=== PATIENT | female | born 1935 | race Caucasian/White ===

== ENCOUNTER 2018-01-26 20:01 | Inpatient (IN) | payer OTHER ==
[~2018-01-26] VITALS: Ht 152.4 cm; Wt 73.0 kg
[~2018-01-26 20:01] MED LIST: COZ50 PO
[2018-01-26 20:10] VITALS: Ht 152.4 cm; Wt 73.0 kg
[2018-01-26 20:56] LABS: CARBON DIOXIDE 26.4 mmol/L (21-32); CHLORIDE SERUM 106 mmol/L (98-107); CREATININE SERUM 0.9 mg/dL (0.6-1.0); GLUCOSE SERUM 109 mg/dL (74-106); POTASSIUM SERUM 3.8 mmol/L (3.5-5.1); SODIUM SERUM 139 mmol/L (136-145)
[2018-01-26 21:00] LABS: ALKALINE PHOSPHATASE 85 U/L (46-116); ALT/SGPT 19 U/L (14-59); AST/SGOT 20 U/L (15-37); BILIRUBIN TOTAL 0.22 mg/dL (0.20-1.00); TOTAL PROTEIN, SERUM 6.8 g/dL (6.4-8.2)
[2018-01-26 21:01] LABS: ALBUMIN 3.3 g/dL (3.4-5.0)
[2018-01-26 21:03] LABS: BASOPHIL % 0.4 % (0-2); PLATELET COUNT 192 x10^3mcL (130-400); RED CELL DISTRIBUTION WIDTH 13.6 % (11.5-14.5)
[2018-01-26 21:53] LABS: MAGNESIUM 2.3 mg/dL (1.8-2.4); PHOSPHOROUS 3.1 mg/dL (2.5-4.9)
[2018-01-26 21:54] LABS: CHOLESTEROL/HDL RATIO 5.1
[2018-01-26 21:57] LABS: T3 TOTAL 0.92 ng/mL
[2018-01-26 21:59] VITALS: BP 161/53
[2018-01-26 22:02] LABS: FREE T4 1.02 ng/dL (0.76-1.46); FREE THYROXINE INDEX 2.4 ug/dL (1.4-4.5); T4(THYROXINE) 6.9 ug/dL (4.7-13.3)
[2018-01-27] VITALS (7 sets, daily range): BP systolic 126–172; BP diastolic 48–60
[2018-01-27 02:13] LABS: microscopic required? YES; urine erythrocyte NEGATIVE (NEGATIVE)
[2018-01-28 05:52] VITALS: BP 157/58
[2018-01-28 06:56] LABS: BASOPHIL % 0.4 % (0-2); PLATELET COUNT 189 x10^3mcL (130-400); RED CELL DISTRIBUTION WIDTH 13.4 % (11.5-14.5)
[2018-01-28 07:10] LABS: CALCIUM 9.1 mg/dL (8.5-10.1); CARBON DIOXIDE 28.2 mmol/L (21-32); CHLORIDE SERUM 108 mmol/L (98-107); CREATININE SERUM 0.8 mg/dL (0.6-1.0); GLUCOSE SERUM 89 mg/dL (74-106); MAGNESIUM 2.4 mg/dL (1.8-2.4); PHOSPHOROUS 3.2 mg/dL (2.5-4.9); POTASSIUM SERUM 4.4 mmol/L (3.5-5.1); SODIUM SERUM 143 mmol/L (136-145)
[2018-01-28 08:06] VITALS: BP 166/56
[2018-01-28 09:10] VITALS: BP 135/68
[2018-01-28] MEDS ORDERED: LEVAQUIN250 M1 PO (10:23)
[2018-01-28] MEDS ORDERED: LAC PO (10:24)
[2018-01-28 11:50] VITALS: BP 135/68
[2018-01-28] MEDS ORDERED: MAG PO (12:00)
[2018-01-28] MEDS ORDERED: POTASSIUM CHLO10 ME2 PO (12:00)
== END 2018-01-28 12:40 | disposition home or self-care (01) | DRG 205 ==
LOC: ED 20:01 → DU 21:15
PROVIDERS: Emergency Medicine; Family Medicine
DX: M94.0 Chondrocostal junction syndrome [Tietze] (principal); N17.0 Acute kidney failure with tubular necrosis; E44.0 Moderate protein-calorie malnutrition; I10 Essential (primary) hypertension; E78.1 Pure hyperglyceridemia; E66.9 Obesity, unspecified; Z68.31 Body mass index [BMI] 31.0-31.9, adult
CPT/HCPCS: 83880; 84439; J1956; J7030; Q0092

== ENCOUNTER 2018-12-02 10:00 | Emergency (ER) | payer OTHER ==
[~2018-12-02] VITALS: Ht 154.9 cm; Wt 69.9 kg
[~2018-12-02 10:00] MED LIST changes: +ASPIRIN ADULT L81 M5 PO; +DEXTROSE IV; +ECO81 PO; +HEP25PM IV; +LAC PO; +LEVAQUIN250 M1 PO; +LIPITOR80 MG PO; +LOSARTAN POTASS25 M1; +MAG PO; +METOPROLOL TART25 M1 PO; +NIT0.4 SL; +POTASSIUM CHLO10 ME2 PO; +TYL325 PO; +[UNRECOGNIZED DRUG - OTHER] IV
[2018-12-02 10:19] VITALS: Ht 154.9 cm; Wt 69.9 kg
[2018-12-02 12:57] VITALS: BP 134/74
== END 2018-12-02 12:57 | disposition home or self-care (01) ==
LOC: ED 10:00
DX: R05 Cough (principal); I10 Essential (primary) hypertension
CPT/HCPCS: Q0092

== ENCOUNTER 2019-04-16 00:03 | Inpatient (IN) | payer OTHER ==
[~2019-04-16] VITALS: Ht 160 cm; Wt 69.9 kg
--- NOTE | 2019-04-16 00:10 | NUR ---
PT. BIB AMBULANCE FOR "FLU LIKE SYMPTOMS" PER FAMILY SINCE YESTERDAY. PER MEDICS WHEN THEY ARRIVED PT. WAS BREATHING NORMAL AND WAS NOT IN ANY DISTRESS, ONCE PLACED ON GURNY, PT. BEGAN TO HAVE TACYPNEA, FEELING SOB, AND C/O OF FEELING ANXIOUS. MEDICS REPORTS PT. WAS VERY ANXIOUS DURING TRANSPORT. PT. AAOX4, SPEAKING IN 2-3 WORD SENTENCES BETWEEN BREATHS AND IN MODERATE DISTRESS. PLACED ON FULL STRIPER SPRAY GUN, OXYGEN GIVEN VIA NC AT 2L FOR OXYGEN SATURATION OF 93% ON RA. PT. REPORTS SHE'S HAD A COUGH AND CONGESTION SINCE YESTERDAY. AND PAST MEDICAL HX OF HEART SURGEY LAST YEAR. DR. COLEMAN MADE AWARE.
[2019-04-16 00:19] VITALS: Ht 160 cm; Wt 69.9 kg
--- NOTE | 2019-04-16 00:36 | NUR ---
DR. COLEMAN AT BEDSIDE FOR MSE.
--- NOTE | 2019-04-16 00:59 | NUR ---
RT AT BEDSIDE FOR BIPAP SET UP
--- NOTE | 2019-04-16 01:00 | NUR ---
PT. ON BIPAP AT 12/5 FIO2 AT 60% WITH RATE OF 14. TOLERATING WELL. WILL CONTINUE TO MONITOR.
[2019-04-16 01:56] LABS: CALCIUM 9.8 mg/dL (8.5-10.1); CARBON DIOXIDE 23.5 mmol/L (21-32); CHLORIDE SERUM 108 mmol/L (98-107); CREATININE SERUM 0.9 mg/dL (0.6-1.0); GLUCOSE SERUM 119 mg/dL (74-106); POTASSIUM SERUM 3.8 mmol/L (3.5-5.1); SODIUM SERUM 144 mmol/L (136-145)
[2019-04-16 01:58] LABS: BASOPHIL % 0.4 % (0-2); PLATELET COUNT 187 x10^3mcL (130-400); RED CELL DISTRIBUTION WIDTH 13.8 % (11.5-14.5)
--- NOTE | 2019-04-16 02:00 | NUR ---
PT. CONTINUES TO BE ON BIPAP, TOLERATING WELL. SLEEPING; EASILY ARROUSABLE. REPORTS SHE IS FEELING BETTER. PT. SITTING UP IN GURNEY, NOT IN ANY APPARENT DISTRESS AT THIS TIME. DAUGHTER AT BEDSIDE. WILL CONTINUE TO MONITOR.
[2019-04-16 02:01] LABS: ALBUMIN 3.6 g/dL (3.4-5.0); ALKALINE PHOSPHATASE 86 U/L (46-116); ALT/SGPT 26 U/L (14-59); AST/SGOT 21 U/L (15-37); BILIRUBIN TOTAL 1.24 mg/dL (0.20-1.00); TOTAL PROTEIN, SERUM 7.2 g/dL (6.4-8.2)
[2019-04-16 02:13] LABS: CK-MB 1.8 ng/mL (0-3.6)
--- NOTE | 2019-04-16 02:15 | NUR ---
RT. AT BEDSIDE TO REMOVE PT. OFF BIPAP PER DR. COLEMAN.
--- NOTE | 2019-04-16 02:20 | NUR ---
PT. PLACED ON BEDPAN FOR URINE SAMPLE. STATES SHE IS UNABLE TO VOID AT THIS TIME. RT AT BEDSIDE FOR BREATHING TREATMENT, WILL ATTEMPT TO COLLECT SAMPLE AFTTER BREATHING TREATMENT.
--- NOTE | 2019-04-16 02:31 | NUR ---
BREATHING TREATMENT IN PROGRESS. WILL CONTINUE TO MONITOR.
--- NOTE | 2019-04-16 02:50 | NUR ---
PT. PLACED ON BEDPAN. STATES SHE IS UNABLE TO VOID AT THIS TIME. INFORMED PT. AND DAUGHTER THAT I WILL INSERT STRAIGHT CATH TO COLLECT SAMPLE IF SHE IS UNALBE TO VOID. PT. AND DAUGHTER REFUSING STRAIGHT CATH FOR URINE SAMPLE. DR. COLEMAN MADE AWARE.
[2019-04-16 03:48] VITALS: BP 137/59
--- NOTE | 2019-04-16 03:50 | NUR ---
PT. SLEEPING, EASILY ARROUSABLE. BREATHING EQUAL AND UNLABORED. NOT IN ANY APPARENT DISTRESS AT THIS TIME. AWAITING TELE ROOM FOR TRANSFER. WILL CONTINUE TO MONITOR.
--- NOTE | 2019-04-16 04:02 | NUR ---
REPORT GIVEN TO CORY BUTLER FOR FURTHER CARE OF PATIENT. ALL QUESTIONS AND CONCERNS ADDRESSED.
--- NOTE | 2019-04-16 04:17 | NUR ---
PT. TRANSPORTED VIA GURNEY TO [facility] FOR FURTHER CARE. PT. STABLE AT TIME OF TRANSFER, TRANSPORTED BY STEPHON BUTLER AND [facility] EMT. STABLE AT TIME OF TRANSFER.
[2019-04-16 04:52] VITALS: BP 165/71
--- NOTE | 2019-04-16 05:04 | NUR ---
RECEIVED PT FROM ER VIA GURNEY ACCOMPANIED BY THE ER NURSE AND THE PATIENTS DAUGHTER. PT IS A/A/O X4, C/O MILD DIZZINESS AND DENIES HEADACHE. WHEEZES NOTED DEBBIE LUNGS. BREATHING EVEN AND LABORED ON 2L NC, SPO2 95%. CONGESTED COUGH NOTED. DENIES CHEST PAIN AND PRESSURE. ON TELE #5 SINUS RHYTHM WITH OCCASIONAL PVCS AND OCCASIONAL PACS ON THE MONITOR. BOWEL SOUNDS ACTIVE. NO C/O N/V AND ABD PAIN. IV INTACT ON THE LAC. MADE PT COMFORTABLE. PLACED CALL LIGHT WITH IN REACH. WILL CONTINUE TO MONITOR.
[2019-04-16 06:36] VITALS: BP 147/64
[2019-04-16 06:36] LABS: ALBUMIN 3.5 g/dL (3.4-5.0); ALKALINE PHOSPHATASE 84 U/L (46-116); ALT/SGPT 26 U/L (14-59); AST/SGOT 19 U/L (15-37); BILIRUBIN TOTAL 1.17 mg/dL (0.20-1.00); CALCIUM 9.6 mg/dL (8.5-10.1); CARBON DIOXIDE 23.6 mmol/L (21-32); CHLORIDE SERUM 109 mmol/L (98-107); CREATININE SERUM 0.9 mg/dL (0.6-1.0); GLUCOSE SERUM 122 mg/dL (74-106); MAGNESIUM 2.3 mg/dL (1.8-2.4); PLATELET COUNT 167 x10^3mcL (130-400); POTASSIUM SERUM 4.1 mmol/L (3.5-5.1); SODIUM SERUM 144 mmol/L (136-145); TOTAL PROTEIN, SERUM 7.1 g/dL (6.4-8.2)
[2019-04-16 06:53] LABS: BASOPHIL % 0 % (0-2)
--- NOTE | 2019-04-16 06:55 | NUR ---
PT RESTING WITH EYES CLOSED. DAUGHTER AT BEDSIDE. NO SIGNIFICANT CHANGES NOTED. MADE PT COMFORTABLE. WILL ENDORSE TO THE AM NURSE ACCORDINGLY.
--- NOTE | 2019-04-16 07:05 | NUR ---
RECIEVED PT RESTING IN BED WITH NO C/O PAIN, DISTRESS, OR SOB. A/O X4 WITH NO SCHUMACHER OR DIZZINESS. TELEL #5 CONNECTED TO PT. LUNGS WITH BILAT. EWHEEZES, PT ON 2 L O2 NCSAT AT 95%. IV INTACT AND PATENT TO LAC NO REDNESS OR INFLAMMATION NOTED. SAFETY PRECAUTIONS IN PLACE, CALL LIGHT WITHIN REACH, WILL MONITOR
[2019-04-16 09:21] VITALS: BP 149/52
--- NOTE | 2019-04-16 10:00 | NUR ---
PT STABLE AT THSI TIME WITH NO C/O PAIN, DISTRESS, OR SOB. DAUGHTER AT BEDSIDE, SAFETY PRECAUTIONS IN PLACE, CALL LIGHT WITHIN REACH, WILL MONITOR.
--- NOTE | 2019-04-16 13:00 | NUR ---
PT STABLE WITH NO C/O PAIN, DISTRESS, OR SOB. TOLERATING ALL CARES WELL, DAUGHTER AT BEDSIDE, SAFETY PRECAUTIONS IN PLACE, CALL LIGHT WITHIN REACH, WILL MONITOR
[2019-04-16 14:03] VITALS: BP 154/54
--- NOTE | 2019-04-16 14:45 | NUR ---
PT STABLE TO DISCHARGE. ALL D/C INTRUCTIONS AND EDUCATION GIVEN TO PT AND FAMILYBY [facility] CHARGE NURSE. PT AND FAMILY VERBALIZED UNDERSTANDING. IV WAS TAKEN OUT WITH CATHETER INTACT, NO REDNESS OR INFLAMMATION NOTED, ALL ID BANDS REMOVED FROM PT AND D/C FORMS SIGNED. PT ESCORTED DOWN TO LOBBY WITH [facility] RESIDENT VIA WC ALOND WITH FAMILY AT SIDE. PT DENIES ANY PAIN, DISTRESS, OR SOB UPON LEAVING.
== END 2019-04-16 14:45 | disposition home or self-care (01) | DRG 202 ==
LOC: ED 00:03 → DU 03:21
PROVIDERS: Emergency Medicine; ADMIT Internal Medicine Pulmonary Disease
DX: J20.9 Acute bronchitis, unspecified (principal); J44.1 Chronic obstructive pulmonary disease with (acute) exacerbation; Z87.891 Personal history of nicotine dependence; I10 Essential (primary) hypertension; G30.9 Alzheimer's disease, unspecified; F02.80 Dementia in other diseases classified elsewhere, unspecified severity, without behavioral disturbance, psychotic disturbance, mood disturbance, and anxiety; F41.9 Anxiety disorder, unspecified; I25.2 Old myocardial infarction; Z68.27 Body mass index [BMI] 27.0-27.9, adult; Z95.1 Presence of aortocoronary bypass graft; Z79.82 Long term (current) use of aspirin
CPT/HCPCS: 83880; G0378; J1940; J2920; J2930; J7620; Q0092

== ENCOUNTER 2019-04-19 06:08 | Observation (INO) | payer OTHER ==
[~2019-04-19] VITALS: Ht 157.5 cm; Wt 68.1 kg
[2019-04-19 06:18] VITALS: Ht 157.5 cm; Wt 68.1 kg
[2019-04-19 07:06] LABS: BASOPHIL % 0.1 % (0-2); PLATELET COUNT 245 x10^3mcL (130-400); RED CELL DISTRIBUTION WIDTH 14.1 % (11.5-14.5)
[2019-04-19 07:34] LABS: ALBUMIN 3.6 g/dL (3.4-5.0); ALKALINE PHOSPHATASE 71 U/L (46-116); ALT/SGPT 27 U/L (14-59); AMYLASE 41 U/L (25-115); AST/SGOT 13 U/L (15-37); BILIRUBIN TOTAL 0.5 mg/dL (0.20-1.00); CALCIUM 9.7 mg/dL (8.5-10.1); CARBON DIOXIDE 34.2 mmol/L (21-32); CHLORIDE SERUM 108 mmol/L (98-107); CHOLESTEROL 137 mg/dL (<200); GLUCOSE SERUM 99 mg/dL (74-106); HDL CHOLESTEROL 41 mg/dL (40-60); LIPASE 112 IU/L (73-393); MAGNESIUM 2.4 mg/dL (1.8-2.4); POTASSIUM SERUM 3.5 mmol/L (3.5-5.1); SODIUM SERUM 145 mmol/L (136-145); TOTAL PROTEIN, SERUM 6.9 g/dL (6.4-8.2)
[2019-04-19 07:36] LABS: microscopic required? NO
[2019-04-19 08:04] LABS: UA SPECIFIC GRAVITY <=1.005 (1.005-1.035); urine erythrocyte NEGATIVE (NEGATIVE)
[2019-04-19 08:31] LABS: AMPHETAMINE QUAL UR NONE DETECTED (See below)
[2019-04-19 12:45] VITALS: BP 138/57
[2019-04-19 15:39] VITALS: BP 130/59
[2019-04-19 16:17] VITALS: BP 134/59
[2019-04-19 20:47] VITALS: BP 121/48
[2019-04-20 05:29] VITALS: BP 148/98
[2019-04-20 06:17] LABS: BASOPHIL % 0.4 % (0-2); PLATELET COUNT 210 x10^3mcL (130-400); RED CELL DISTRIBUTION WIDTH 14.2 % (11.5-14.5)
[2019-04-20 06:49] LABS: ALKALINE PHOSPHATASE 63 U/L (46-116); ALT/SGPT 29 U/L (14-59); AST/SGOT 33 U/L (15-37); BILIRUBIN TOTAL 0.6 mg/dL (0.20-1.00); CALCIUM 9.6 mg/dL (8.5-10.1); CARBON DIOXIDE 28.2 mmol/L (21-32); CHLORIDE SERUM 103 mmol/L (98-107); GLUCOSE SERUM 119 mg/dL (74-106); MAGNESIUM 2.5 mg/dL (1.8-2.4); POTASSIUM SERUM 4.8 mmol/L (3.5-5.1); SODIUM SERUM 142 mmol/L (136-145); TOTAL PROTEIN, SERUM 6.9 g/dL (6.4-8.2)
[2019-04-20 06:50] LABS: ALBUMIN 3.2 g/dL (3.4-5.0)
[2019-04-20 09:45] VITALS: BP 125/53
[2019-04-20 15:06] VITALS: BP 125/53
== END 2019-04-20 16:10 | disposition home or self-care (01) | DRG 202 ==
LOC: ED 06:08 → DU 09:02
PROVIDERS: Emergency Medicine; ADMIT Internal Medicine Pulmonary Disease
DX: J20.9 Acute bronchitis, unspecified (principal); I50.42 Chronic combined systolic (congestive) and diastolic (congestive) heart failure; I11.0 Hypertensive heart disease with heart failure; J44.9 Chronic obstructive pulmonary disease, unspecified; F41.0 Panic disorder [episodic paroxysmal anxiety]; Z87.891 Personal history of nicotine dependence; Z79.82 Long term (current) use of aspirin
CPT/HCPCS: 82962; 83880; 97116-GP; G0378; J1644; J1940; J2920; J2930; J7613; J7620; J7626; J7644; Q0092

== ENCOUNTER 2019-10-24 15:33 | Observation (INO) | payer OTHER ==
[~2019-10-24] VITALS: Ht 157.5 cm; Wt 72.6 kg
[2019-10-24 16:56] LABS: BASOPHIL % 0.6 % (0-2); PLATELET COUNT 162 x10^3mcL (130-400)
[2019-10-24 17:06] LABS: CALCIUM 9.3 mg/dL (8.5-10.1); CARBON DIOXIDE 28.6 mmol/L (21-32); CHLORIDE SERUM 105 mmol/L (98-107); CREATININE SERUM 1.1 mg/dL (0.6-1.0); GLUCOSE SERUM 98 mg/dL (74-106); POTASSIUM SERUM 4.4 mmol/L (3.5-5.1); SODIUM SERUM 140 mmol/L (136-145)
[2019-10-24 17:07] LABS: RED CELL DISTRIBUTION WIDTH 14.7 % (11.5-14.5)
[2019-10-24 17:10] LABS: ALBUMIN 3.5 g/dL (3.4-5.0); ALKALINE PHOSPHATASE 112 U/L (46-116); ALT/SGPT 29 U/L (14-59); AST/SGOT 24 U/L (15-37); BILIRUBIN TOTAL 0.72 mg/dL (0.20-1.00); LIPASE 117 IU/L (73-393); TOTAL PROTEIN, SERUM 6.7 g/dL (6.4-8.2)
[2019-10-24 18:06] LABS: UA SPECIFIC GRAVITY >=1.030 (1.005-1.035); microscopic required? YES; urine erythrocyte TRACE (NEGATIVE)
[2019-10-24 20:04] VITALS: BP 139/76
[2019-10-25 06:05] VITALS: BP 104/71
[2019-10-25 07:05] LABS: BASOPHIL % 0.5 % (0-2); PLATELET COUNT 169 x10^3mcL (130-400); RED CELL DISTRIBUTION WIDTH 14.4 % (11.5-14.5)
[2019-10-25 07:10] VITALS: BP 144/61
[2019-10-25 07:54] LABS: CALCIUM 9.4 mg/dL (8.5-10.1); CHLORIDE SERUM 102 mmol/L (98-107); CREATININE SERUM 1.1 mg/dL (0.6-1.0); GLUCOSE SERUM 96 mg/dL (74-106); MAGNESIUM 2.5 mg/dL (1.8-2.4); POTASSIUM SERUM 4.2 mmol/L (3.5-5.1); SODIUM SERUM 140 mmol/L (136-145)
[2019-10-25 11:19] VITALS: BP 132/64
[2019-10-25] MEDS ORDERED: LASIX40 MG PO (14:16)
== END 2019-10-25 16:43 | disposition home health service (06) ==
LOC: ED 15:33 → DU 18:50
PROVIDERS: Emergency Medicine; ADMIT Internal Medicine Pulmonary Disease
DX: I11.0 Hypertensive heart disease with heart failure (principal); I50.43 Acute on chronic combined systolic (congestive) and diastolic (congestive) heart failure; J44.9 Chronic obstructive pulmonary disease, unspecified; E78.5 Hyperlipidemia, unspecified; G30.9 Alzheimer's disease, unspecified; F02.80 Dementia in other diseases classified elsewhere, unspecified severity, without behavioral disturbance, psychotic disturbance, mood disturbance, and anxiety; I25.10 Atherosclerotic heart disease of native coronary artery without angina pectoris; Z95.1 Presence of aortocoronary bypass graft; Z87.891 Personal history of nicotine dependence
CPT/HCPCS: 82962; 83880; G0378; J1644; J1940; J3475; Q0092